=== PATIENT | female | born 1980 | race Caucasian/White ===

== ENCOUNTER 2022-01-18 16:22 | Emergency (ER) | payer OTHER ==
[~2022-01-18] VITALS: Ht 160 cm; Wt 77.1 kg
[2022-01-18 17:06] VITALS: BP 127/81
--- NOTE | 2022-01-18 17:10 | NUR ---
TESTED (+) TO [facility] 3 DAYS AGO, VERY ANXIOUS,ASKING WHY HER COUGH IS GETTING WORS. THE PATIENT IN ROOM AIR AND OXYGEN SATURATION IS AT 97%. DENIES PAIN. WILL CONTINUE TO MONITOR THE PATIENT.
[2022-01-18] MEDS ORDERED: BUSP10TA35 PO (17:17)
--- NOTE | 2022-01-18 17:40 | NUR ---
Patient discharged to home in stable condition. Written and verbal after care instructions given. Patient verbalizes understanding of instruction.
== END 2022-01-18 17:45 | disposition home or self-care (01) ==
LOC: ER 16:27
DX: U07.1 COVID-19 (principal); J40 Bronchitis, not specified as acute or chronic; F41.0 Panic disorder [episodic paroxysmal anxiety]; F17.210 Nicotine dependence, cigarettes, uncomplicated